=== PATIENT | female | born 1990 | race Caucasian/White ===

== ENCOUNTER 2016-06-21 08:20 | Emergency (ER) | payer MEDICAID ==
[~2016-06-21] VITALS: Ht 165.1 cm; Wt 150.0 kg
[2016-06-21] MEDS ORDERED: ACETAMINOPHEN 500MG TABLET PO ONE (10:15)
[2016-06-21 10:40] VITALS: BP 134/80
== END 2016-06-21 11:35 | disposition home or self-care (01) ==
LOC: ER 09:38
DX: R51 Headache (principal); F12.10 Cannabis abuse, uncomplicated; F17.200 Nicotine dependence, unspecified, uncomplicated
CPT/HCPCS: 99282

== ENCOUNTER 2020-11-24 17:42 | Emergency (ER) | payer MEDICAID ==
[~2020-11-24] VITALS: Ht 165.1 cm; Wt 163.6 kg
[2020-11-24] MEDS ORDERED: MAGNESIUM/ALUMINUM HYDROXIDE/SIMETHICONE 30ML UDC PO STA (18:54)
[2020-11-24] MEDS ORDERED: FAMOTIDINE 20MG TABLET PO ONE (19:00)
[2020-11-24 19:11] LABS: BASOPHILS % 0.5 % (0.0-2.0); EOSINOPHILS % 1.3 % (0.0-5.0); HEMATOCRIT. 34.2 % (36.0-48.0); HEMOGLOBIN. 11.8 g/dL (12.0-16.0); LYMPHOCYTES % 26.5 % (20.0-50.0); MEAN CORPUSCULAR HEMOGLOBIN 25.4 pg (28.0-32.0); MEAN CORPUSCULAR VOLUME 73.7 fL (81.0-99.0); MEAN PLATELET VOLUME 9.1 fl (7.4-10.4); MONOCYTES % 5.8 % (2.0-8.0); NEUTROPHILS % 65.9 % (40.0-76.0); PLATELET 301 x1000/uL (130-400); RED BLOOD CELL COUNT 4.65 mill/uL (4.2-5.4); RED CELL DISTRIBUTION WIDTH 16.3 % (11.6-14.6)
[2020-11-24 19:18] LABS: CHLORIDE 107 mEq/L (98-107)
[2020-11-24 19:24] LABS: HCG SCREEN NEGATIVE
[2020-11-24] MEDS ORDERED: FAMO-135 PO (23:13)
[2020-11-24 23:50] VITALS: BP 142/75
== END 2020-11-24 23:53 | disposition home or self-care (01) ==
LOC: ER 17:42
DX: R10.11 Right upper quadrant pain (principal); F12.10 Cannabis abuse, uncomplicated
CPT/HCPCS: 36415; 76700; 80053; 81025; 84703; 85025; 93005; 99285